=== PATIENT | female | born 1935 | race Caucasian/White ===

== ENCOUNTER 2022-05-03 13:07 | Emergency (ER) | payer MEDICARE, OTHER ==
[2022-05-03] MEDS ORDERED: NORCO 5/325 MG PO ONE (13:55)
[2022-05-03 14:06] LABS: Absolute Neutrophil Ct (ANC) 4.97 x10^3/uL (1.4-6.9); Basophil (Absolute #) 0.08 x10^3/uL (0-0.4); Eosinophil % 4.1 % (0.00-5.0); Eosinophil (Absolute #) 0.33 x10^3/uL (0-0.5); Hematocrit 41.9 % (35-47); Hemoglobin 13.3 g/dL (12.0-16.0); Lymphocyte (Absolute #) 2.04 x10^3/uL (1.0-4.6); Lymphocytes % 25.2 % (24.0-44.0); Mean Cell Volume 92.7 fL (78-100); Mean Corpuscular Hemoglobin 29.4 pg (26-32); Mean Corpuscular Hgb Concent. 31.7 g/dL (32-36); Mean Platelet Volume 9.8 fL (7.5-11.0); Monocyte (Absolute #) 0.64 x10^3/uL (0.0-1.3); Monocytes % 7.9 % (0.0-12.0); Neutrophil % 61.4 % (36.0-66.0); Platelet Count 270 x10^3/uL (150-450); Red Blood Count 4.52 x10^6/uL (4.1-5.4); Red Cell Distribution Width 12.5 % (11.5-14.0); White Blood Count 8.1 x10^3/uL (4.0-10.5)
[2022-05-03] MEDS ORDERED: NORCO 5/325 MG ONE (14:15)
[2022-05-03 14:33] LABS: ALBUMIN 4.2 g/dL (3.5-5.0); ANION GAP 12.9 MEQ/L (5-15); BILIRUBIN,TOTAL 0.6 mg/dL (0.2-1.3); Calcium 8.7 mg/dL (8.4-10.2); EST GLOMERULAR FILTRATION RATE 55.6 ML/MIN; Potassium 4.9 mmol/L (3.5-5.1); Total Protein 7.5 g/dL (6.3-8.2)
--- NOTE | 2022-05-03 14:46 | XRAY ---
Indication: Chest pain. Comparison: None 2 view right ribs demonstrates osteopenia, old anterior 10/12/03/19 rib fractures, intact right shoulder arthroplasty, moderate acromioclavicular degenerative arthropathy, small right lung base calcified granuloma, and right hemidiaphragm elevation. No other bony, articular, or soft tissue abnormalities.
--- NOTE | 2022-05-03 14:49 | XRAY ---
Indication: Right chest pain. Comparison: None Portable chest inflated with minimal left base hazy airspace opacity with tiny effusion. Remaining heart and lungs unremarkable with incidental small right base calcified granuloma, right hemidiaphragm elevation, and small hiatal hernia. Bony thorax intact with osteopenia, degenerative changes, and right shoulder arthroplasty.
--- NOTE | 2022-05-03 15:30 | ERPHSYRPT ---
- History of Present Illness Time Seen by Provider: 05/03/22 13:09 Historian: patient Exam Limitations: no limitations Patient Subjective Stated Complaint: C/O right sided pain. Pain increases with movement. States pain started approx 2 hours ago. Triage Nursing Assessment: Patient brought back to ED in W/C. Patient assisted by one staff to transfer from chair to bed; able to bear weight without difficulties or BLE dysfunction. Patient does display s/s of pain when transferring or being moved around in bed. No SOB noted. She is alert and orie nted; [id number] with patient reports normal mental status for this patient. No skin alterations noted to torso/abdomen/chest. Physician History: 86 years old female with history of hypertension, hyperlipidemia, GERD/hiatal hernia presented to ER with chief complaint of right-sided chest pain underneath right breast moderate intensity sharp nature started almost 2 hours ago, aggravated with palpation, twisting/movements and hurts to take a deep breath. No significant relieving factors. Denies any abdominal pain nausea or vomiting. Does have history of multiple ribs fracture on the right side in the past. Timing/Duration: hour(s) Activities at Onset: rest Quality: sharpness Chest Pain Radiation: no radiation Severity of Pain-Max: moderate Severity of Pain-Current: moderate Modifying Factors: Worsens With: movement, palpation Associated Symptoms: hurts to breathe Prior Chest Pain/Cardiac Workup: no prior chest pain Nitro Today/Relief: no nitro taken today Aspirin Treatment Today: 81 mg x 1 Allergies/Adverse Reactions: morphine Adverse Reaction (Verified 05/03/22 13:32) Home Medications: Ascorbic Acid [Vitamin C] 1 tab PO DAILY 05/03/22 [History] Aspirin EC 81 mg [Ecotrin 81 mg] 2 tab PO DAILY 05/03/22 [History] Docusate Sodium [Frias' Laxative] 2 cap PO HS 05/03/22 [History] Escitalopram Oxalate [Lexapro] 1 tab PO DAILY 05/03/22 [History] Esomeprazole Magnesium 40 mg PO DAILY 05/03/22 [History] Ezetimibe 10 mg [Zetia 10 MG] 1 tab PO DAILY 05/03/22 [History] Ferrous Sulfate 1 tab PO 3XW 05/03/22 [History] Losartan Potassium 50 mg [Cozaar 50 MG] 1 tab PO DAILY 05/03/22 [History] Magnesium Oxide 400 mg [Mag-Ox 400] 1 tab PO BID 05/03/22 [History] Melatonin 1 tab PO HS 05/03/22 [History] Hx Tetanus, Diphtheria Vaccination/Date Given: Yes Hx Influenza Vaccination/Date Given: No (last season) Hx Pneumococcal Vaccination/Date Given: Yes Immunizations Up to Date: Yes Travel Risk - International Travel Have you traveled outside of the country in past 3 weeks: No - Coronavirus Screening Are you exhibiting any of the following symptoms?: No Close contact with a COVID-19 positive Pt in past 14-21 Days: No - Vaccine Status Have you recieved a Covid-19 vaccination: Yes [employer]: [employer] - Vaccination Dates Date of 2cond Vaccination (if applicable): 2020 - Review of Systems Constitutional: No Symptoms Eyes: No Symptoms Ears, Nose, & Throat: No Symptoms Respiratory: No Symptoms Cardiac: Chest Pain Abdominal/Gastrointestinal: No Symptoms Genitourinary Symptoms: No Symptoms Musculoskeletal: No Symptoms Skin: No Symptoms Neurological: No Symptoms Psychological: No Symptoms Endocrine: No Symptoms Hematologic/Lymphatic: No Symptoms Immunological/Allergic: No Symptoms - Past Medical History Pertinent Past Medical History: Yes Neurological History: Dementia, Stroke ENT History: Cataracts Cardiac History: Hypertension Respiratory History: Pneumonia Endocrine Medical History: No Pertinent History Musculoskeletal History: No Pertinent History GI Medical History: GERD History: No Pertinent History Psycho-Social History: Anxiety, Depression Female Reproductive Disorders: No Pertinent History Other Medical History: "frozen" right shoulder - Past Surgical History Past Surgical History: Yes Gastrointestinal: Appendectomy Musculoskeletal: Other Other Surgical History: right shoulder surgery - Social History Smoking Status: Never smoker Exposure to second hand smoke: No Drug Use: none Patient Lives Alone: No - Nursing Vital Signs Nursing Vital Signs: Initial Vital Signs Temperature 98 F 05/03/22 13:32 Pulse Rate 77 05/03/22 13:32 Respiratory Rate 18 05/03/22 13:32 Blood Pressure 122/58 05/03/22 13:32 O2 Sat by Pulse Oximetry 95 05/03/22 13:32 Pain Scale Pain Intensity 2 - Physical Exam General Appearance: no apparent distress, alert Eye Exam: PERRL/EOMI Ears, Nose, Throat Exam: normal ENT inspection Neck Exam: normal inspection, non-tender, supple, full range of motion Respiratory Exam: normal breath sounds, chest tenderness (Right lower anterior chest wall) Cardiovascular Exam: regular rate/rhythm, normal heart sounds Gastrointestinal/Abdomen Exam: soft, normal bowel sounds, No tenderness, No guarding Back Exam: normal inspection, normal range of motion Extremity Exam: normal inspection, normal range of motion Neurologic Exam: alert, oriented x 3, cooperative Skin Exam: normal color SpO2 Interpretation: normal SpO2: 95 O2 Delivery: Room Air - Course EKG Interpreted by Me: RATE (79), Sinus Rhythm, NORMAL AXIS, NORMAL INTERVALS, Non-specific ST Changes Ordered Tests: Active Orders 24 hr Category Date Time Status Message Clerk STAT Care 05/03/22 13:55 Active EKG-ER Only STAT Care 05/03/22 13:55 Active IV Insertion STAT Care 05/03/22 13:55 Active CHEST 1 VIEW (PORTABLE) Stat Exams 05/03/22 13:55 Completed CHEST WITH CONTRAST [CT] Stat Exams 05/03/22 16:43 Completed RIBS UNILATERAL Stat Exams 05/03/22 14:05 Completed BNP [NT PRO BNP] Stat Lab 05/03/22 14:06 Completed CBC W DIFF Stat Lab 05/03/22 14:06 Completed CMP Stat Lab 05/03/22 14:06 Completed D-DIMER QUANTITATIVE Stat Lab 05/03/22 13:45 Completed TROPONIN Q3H Lab 05/03/22 14:06 Completed TROPONIN Q3H Lab 05/03/22 17:50 Completed TROPONIN Q3H Lab 05/03/22 20:00 Ordered TROPONIN Q3H Lab 05/03/22 23:00 Ordered Medication Summary Discontinued Medications Generic Name Dose Route Start Last Admin Trade Name Tristan PRN Reason Stop Dose Admin Hydrocodone Bitart/Acetaminophen 1 tab 05/03/22 13:55 05/03/22 14:35 Hydrocodone/Apap 5/325 Mg Tablet PO 05/03/22 13:56 1 tab STAT ONE Administration Hydrocodone Bitart/Acetaminophen Confirm 05/03/22 14:15 Hydrocodone/Apap 5/325 Mg Tablet Administered 05/03/22 14:16 Dose 1 tab .ROUTE .STK-MED ONE Lab/Rad Data: Laboratory Result Diagrams 05/03/22 14:06 05/03/22 14:06 Laboratory Results 05/03/22 05/03/22 05/03/22 Range/Units 17:50 14:06 14:06 WBC (4.0-10.5) x10^3/uL RBC (4.1-5.4) x10^6/uL Hgb (12.0-16.0) g/dL Hct (35-47) % MCV (78-100) fL MCH (26-32) pg MCHC (32-36) g/dL RDW (11.5-14.0) % Plt Count (150-450) x10^3/uL MPV (7.5-11.0) fL Gran % (36.0-66.0) % Immature Gran % (Auto) (0.00-0.4) % Nucleat RBC Rel Count (0.00-0.1) % Eos # (Auto) (0-0.5) x10^3/uL Immature Gran # (Auto) (0.00-0.03) x10^3u/L Absolute Lymphs (auto) (1.0-4.6) x10^3/uL Absolute Monos (auto) (0.0-1.3) x10^3/uL Absolute Nucleated RBC (0.00-0.01) x10^3u/L Lymphocytes % (24.0-44.0) % Monocytes % (0.0-12.0) % Eosinophils % (0.00-5.0) % Basophils % (0.0-0.4) % Absolute Granulocytes (1.4-6.9) x10^3/uL Basophils # (0-0.4) x10^3/uL D-Dimer (0.0-0.50) mg/L Sodium 133 L (137-145) mmol/L Potassium 4.9 (3.5-5.1) mmol/L Chloride 101 (98-107) mmol/L Carbon Dioxide 24 (22-30) mmol/L Anion Gap 12.9 (5-15) MEQ/L BUN 16 (7-17) mg/dL Creatinine 1.00 (0.52-1.04) mg/dL Estimated GFR 55.6 ML/MIN Glucose 104 (74-106) mg/dL Calcium 8.7 (8.4-10.2) mg/dL Total Bilirubin 0.60 (0.2-1.3) mg/dL AST 27 (14-36) U/L ALT 16 (0-35) U/L Alkaline Phosphatase 59 (38-126) U/L Troponin I < 0.012 < 0.012 (0.000-0.034) ng/mL NT-Pro-B Natriuret Pep 128 (0-1800) pg/mL Serum Total Protein 7.5 (6.3-8.2) g/dL Albumin 4.2 (3.5-5.0) g/dL 05/03/22 05/03/22 Range/Units 14:06 13:45 WBC 8.1 (4.0-10.5) x10^3/uL RBC 4.52 (4.1-5.4) x10^6/uL Hgb 13.3 (12.0-16.0) g/dL Hct 41.9 (35-47) % MCV 92.7 (78-100) fL MCH 29.4 (26-32) pg MCHC 31.7 L (32-36) g/dL RDW 12.5 (11.5-14.0) % Plt Count 270 (150-450) x10^3/uL MPV 9.8 (7.5-11.0) fL Gran % 61.4 (36.0-66.0) % Immature Gran % (Auto) 0.4 (0.00-0.4) % Nucleat RBC Rel Count 0.0 (0.00-0.1) % Eos # (Auto) 0.33 (0-0.5) x10^3/uL Immature Gran # (Auto) 0.03 (0.00-0.03) x10^3u/L Absolute Lymphs (auto) 2.04 (1.0-4.6) x10^3/uL Absolute Monos (auto) 0.64 (0.0-1.3) x10^3/uL Absolute Nucleated RBC 0.00 (0.00-0.01) x10^3u/L Lymphocytes % 25.2 (24.0-44.0) % Monocytes % 7.9 (0.0-12.0) % Eosinophils % 4.1 (0.00-5.0) % Basophils % 1.0 (0.0-0.4) % Absolute Granulocytes 4.97 (1.4-6.9) x10^3/uL Basophils # 0.08 (0-0.4) x10^3/uL D-Dimer 0.83 H* (0.0-0.50) mg/L Sodium (137-145) mmol/L Potassium (3.5-5.1) mmol/L Chloride (98-107) mmol/L Carbon Dioxide (22-30) mmol/L Anion Gap (5-15) MEQ/L BUN (7-17) mg/dL Creatinine (0.52-1.04) mg/dL Estimated GFR ML/MIN Glucose (74-106) mg/dL Calcium (8.4-10.2) mg/dL Total Bilirubin (0.2-1.3) mg/dL AST (14-36) U/L ALT (0-35) U/L Alkaline Phosphatase (38-126) U/L Troponin I (0.000-0.034) ng/mL NT-Pro-B Natriuret Pep (0-1800) pg/mL Serum Total Protein (6.3-8.2) g/dL Albumin (3.5-5.0) g/dL - Progress Progress: improved Air Movement: good Progress Note: 05/03/22 18:44 86 years old is evaluated for right-sided chest pain. EKG did not show any acute ischemic changes and negative troponins x2. Obtained CTA chest which is negative for obvious PE. Patient is given symptomatic treatment, on reevaluation feeling much better. Pain is reproducible, on the right lower chest wall and does have history of previous multiple ribs fracture, could have strained chest wall. Recommended supportive care and outpatient follow-up. Do not think she needs any further work-up and is stable for discharge with outpatient follow-up. Discussed signs symptoms of worsening needing return to ER which she seems understanding. Blood Culture(s) Obtained: No Antibiotics given: No Counseled pt/family regarding: lab results, diagnosis, need for follow-up, rad results - Departure Departure Disposition: Home Clinical Impression: Chest pain, atypical Condition: Stable Critical Care Time: No Referrals: DOCTOR,NO FAMILY [Primary Care Provider] - Follow up/PCP as directed DELILAH GUDINO MD [ACTIVE STAFF] - Follow Up with PCP/3 days Instructions: Chest Pain (DC) Additional Instructions: Take Tylenol as needed. Follow-up with your primary care for reevaluation. Return to ER for worsening chest pain or if having difficulty breathing etc.
--- NOTE | 2022-05-03 16:47 | XRAY ---
Indication: Right chest pain. Multiple contiguous axial images obtained through the chest using Isovue 370 contrast and PE protocol. Comparison: None Good opacification of the pulmonary arteries to include the lobar and segmental branches. However mild respiration artifact limits evaluation of the more distal lobar and segmental branches. No obvious pulmonary embolus. Heart borderline enlarged. Aorta is normal in course and caliber. Tiny subcarinal calcified nodes. No pathologic mediastinal/hilar lymphadenopathy. Incidental moderate size hiatal hernia with partial intrathoracic stomach. Lungs demonstrates small left effusion with minimal left base compressive atelectasis. Incidental small right costophrenic angle calcified granuloma, minimal bilateral upper lobe fibrosis/scarring, and right apical bullae. Bony thorax intact with osteopenia, mild/moderate degenerative changes throughout the spine, remote T11-T12 superior endplate fractures with 25-50% height loss, old right 3/4/8/9 rib fractures, and right shoulder arthroplasty. Limited upper abdomen demonstrates fatty liver. Impression: 1. Pulmonary embolus evaluation limited by respiration artifact. No obvious pulmonary embolus. 2. Small nonspecific left effusion with compressive atelectasis. Consider cardiac decompensation/CHF given borderline cardiomegaly. 3. Chronic findings including biapical lobe fibrosis/scarring, right apical bullae, hiatal hernia with partial intrathoracic stomach, old granulomatous disease, chronic bony findings, and fatty liver.
[2022-05-03 18:14] VITALS: O2SAT 95
[2022-05-03 18:40] VITALS: BP 155/83; PULSE 80
== END 2022-05-03 19:05 | disposition home or self-care (01) ==
LOC: ED 13:07
DX: R07.89 Other chest pain (principal); I10 Essential (primary) hypertension; E78.5 Hyperlipidemia, unspecified; Z79.899 Other long term (current) drug therapy
CPT/HCPCS: 36000; 36415; 71045; 71100; 71260; 80053; 83880; 84484; 85025; 85379; 93005; 93041; 99284; A9270-GY